=== PATIENT | male | born 1945 | race Caucasian/White ===

== ENCOUNTER 2017-02-23 20:40 | Inpatient (IN) ==
[2017-02-23] MEDS ORDERED: PANTOPRAZOLE 40 MG VIAL IV STA (22:05)
[2017-02-23] MEDS ORDERED: MORPHINE 2 MG/1 ML SYRINGE IV STA (22:05)
[2017-02-23] MEDS ORDERED: SODIUM CHLORIDE 0.9% 500 ML IV STA (22:05)
[2017-02-23] MEDS ORDERED: ONDANSETRON 4 MG/2 ML VIAL IV STA (22:05)
[2017-02-23] MEDS ORDERED: PANTOPRAZOLE 40 MG VIAL IV ONE (23:14)
[2017-02-23 23:22] LABS: Basophils % 0.3 % (0.0-0.8); Eosinophils # 0.1 10*3/uL (0.0-0.87); Eosinophils % 0.6 % (0.00-10.9); Hematocrit 39.4 VOL% (42.0-52.0); Hemoglobin 13.7 GM/DL (14.0-18.0); Immature Granulocytes % 1.1 %; Immature Granulocytes Absolute 0.15 #; Lymphocytes # 2.2 10*3/uL (1.4-4.0); Lymphocytes % 16.1 % (21.2-54.2); Mean Corpuscular HGB Conc 34.8 GM/DL (32-36); Mean Corpuscular Hemoglobin 34 PG (27-34); Mean Corpuscular Volume 97.3 FL (87-102); Mean Platelet Volume 10.7 FL (9.6-12.0); Monocytes # 1.2 10*3/uL (0.11-0.8); Monocytes % 8.5 % (1.7-12.7); Neutrophils # 10.2 10*3/uL (1.4-7.4); Neutrophils % 73.4 % (38.7-73.9); Platelet Count 190 T/CUMM (130-400); Red Blood Count 4.05 MC/CUMM (3.8-5.5); Red Cell Distribution Width 12.6 % (9.3-17.3); White Blood Count 13.9 T/CUMM (4-12)
[2017-02-23 23:53] LABS: Apearance,Urine CLOUDY (Clear); Bilirubin,Urine Negative (Negative); Blood, Urine Large mg/dL (Negative); Glucose,Urine (UA) 150 mg/dL (Negative); Ketones,Urine Negative (Negative); Nitrite,Urine Negative (Negative); Protein,Urine 100 MG/DL; RBC,Urine 847 /HPF (0-4); Urine Color Yellow (Yellow); Urine Specific Gravity 1.015 (1.001-1.035); Urine Urobilinogen < 2.0 EU/DL (0.2-1.0); WBC,Urine 2317 /HPF (0-6)
[2017-02-24] MEDS ORDERED: PIPERACILLIN/TAZOBACTAM 3,375 MG VIAL IV ONE (00:14)
[2017-02-24 00:16] LABS: Albumin 2.7 G/DL (3.4-5.0); Bilirubin,Total 0.5 MG/DL (0.2-1.0); Calcium 8.7 MG/DL (8.5-10.1); Magnesium 3.4 MG/DL (1.8-2.4); Osmolality,Calculated 298.1 MOS/KG (273-304); Potassium 3.9 MMOL/L (3.5-5.1); Total Protein 6.3 G/DL (6.4-8.3); Troponin I Only 0.016 NG/ML (0.00-0.045)
[2017-02-24] MEDS: PIPERACILLIN/TAZOBACTAM 3,375 MG in SODIUM CHLORIDE 0.9% 100 ML IV SCH ×3 (00:28→15:48)
[2017-02-24 00:30] LABS: INR 1.1; PT Patient Result 11.9 SECS; Partial Thromboplastin Time 33.9 SECS (0-40)
[2017-02-24 07:28] LABS: Basophils % 0.3 % (0.0-0.8); Eosinophils % 0.8 % (0.00-10.9); Hematocrit 41.4 VOL% (42.0-52.0); Hemoglobin 13.4 GM/DL (14.0-18.0); Immature Granulocytes % 2.2 %; Immature Granulocytes Absolute 0.08 #; Lymphocytes # 0.3 10*3/uL (1.4-4.0); Lymphocytes % 8.6 % (21.2-54.2); Mean Corpuscular HGB Conc 32.4 GM/DL (32-36); Mean Corpuscular Hemoglobin 34 PG (27-34); Mean Corpuscular Volume 104.5 FL (87-102); Mean Platelet Volume 10.5 FL (9.6-12.0); Monocytes % 0.8 % (1.7-12.7); NRBC # 0.07 10*3/uL; Neutrophils # 3.2 10*3/uL (1.4-7.4); Neutrophils % 87.3 % (38.7-73.9); Platelet Count 179 T/CUMM (130-400); Red Blood Count 3.96 MC/CUMM (3.8-5.5); White Blood Count 3.7 T/CUMM (4-12)
[2017-02-24] MEDS ORDERED: ACETAMINOPHEN 325 MG TABLET PO PRN (07:44)
[2017-02-24 07:55] LABS: Band Neutrophils 9 % (0-10); Eosinophils 1 % (0-10); Hypochromasia 1+; Lymphocytes 13 % (20-55); Segmented Neutrophils 72 % (50-85); Total Cells Counted 100
[2017-02-24 07:56] LABS: Microcytosis 1+; Platelet Estimate Adequate
[2017-02-24] MEDS ORDERED: MULTIVITAMIN (CENTRUM) TABLET PO SCH (08:00)
[2017-02-24] MEDS ORDERED: MEGESTROL 400 MG/10 ML UDCUP PO SCH (08:00)
[2017-02-24 08:01] LABS: Alanine Aminotransferase 53 U/L (16-61); Albumin 2.5 G/DL (3.4-5.0); Alkaline Phosphatase 135 U/L (45-117); Aspartate Amino Transferase 30 U/L (0-37); Blood Urea Nitrogen 33 MG/DL (7-18); Calcium 9.5 MG/DL (8.5-10.1); Glucose 193 MG/DL (74-106); Osmolality,Calculated 303.4 MOS/KG (273-304); Potassium 3.7 MMOL/L (3.5-5.1); Sodium 147 MMOL/L (136-145); Total Protein 5.8 G/DL (6.4-8.3)
[2017-02-24 08:06] LABS: Lactic Acid 16.9 MMOL/L (0.4-2.0)
[2017-02-24] MEDS ORDERED: DEXTROSE 5% 1,000 ML IV SCH (08:30)
[2017-02-24] MEDS: levETIRAcetam 500 MG TABLET PO SCH ×2 (08:58→09:12)
[2017-02-24] MEDS: APIXABAN 5 MG TABLET PO SCH ×3 (08:58→15:30)
[2017-02-24] MEDS: DULoxetine 30 MG CAPSULE PO SCH ×3 (08:58→15:30)
[2017-02-24] MEDS: DILTIAZEM 60 MG TABLET PO SCH ×3 (08:58→14:19)
[2017-02-24] MEDS ORDERED: CHOLECALCIFEROL 1,000 UNIT TABLET PO SCH (09:00)
[2017-02-24] MEDS ORDERED: MAGNESIUM HYDROXIDE SUSP 30 ML UDCUP PO SCH (09:00)
[2017-02-24] MEDS ORDERED: ARIPiprazole 5 MG TABLET PO SCH (09:00)
[2017-02-24 16:33] VITALS: BP 102/58
[2017-02-24] MEDS ORDERED: MIRTAZAPINE 15 MG TABLET PO SCH (21:00)
[2017-02-24] MEDS ORDERED: DOCUSATE SODIUM 100 MG CAPSULE PO SCH (21:00)
[2017-02-24] MEDS ORDERED: ROSUVASTATIN 10 MG TABLET PO SCH (21:00)
[2017-02-25] MEDS ORDERED: PANTOPRAZOLE 40 MG TABLET PO SCH (06:30)
== END 2017-02-24 19:09 | disposition expired | DRG 871 ==
LOC: EDBD → EDUNIT# → N.ED 20:40 → N.EDINP 02-24 01:26 → N.5E 02-24 02:42
PROVIDERS: ADMIT Internal Medicine; ATTEND Internal Medicine